=== PATIENT | male | born 1930 | race Caucasian/White ===

== ENCOUNTER → 2016-11-17 | Outpatient (CLI) | payer MEDICARE ==
[~2016-11-17] MED LIST: ASPIRIN PO; ATENOLOL25 MG PO; CLARITIN10 MG PO; COZAAR PO; DARVOCET-N 1001 TAB PO; FINASTERIDE5 M1 PO; LIPITOR PO; LISINOPRIL PO; METAMUCIL0.52 G PO; PRILOSEC PO; ZOCOR PO
[2016-11-17 12:12] LABS: CREATININE SERUM 0.9 mg/dL (0.6-1.4); GLOM FILT RATE Estimated 78.2 mL/min (>60)
== END | disposition home or self-care (01) ==
LOC: CLAB 10:54
PROVIDERS: Registered Nurse
DX: I71.4 Abdominal aortic aneurysm, without rupture (principal)
CPT/HCPCS: 36415; 82565; 84520

== ENCOUNTER → 2016-11-24 | Outpatient (CLI) | payer MEDICARE ==
--- NOTE | ~2016-11-24 | CT14 ---
[facility] A Service of [facility] & [facility] RADIOLOGY TEXT RESULTS PATIENT: NURYS SNOW LOCATION: [facility] : 32 UNIT #: [id number] AGE: [address]: Martha Naidu SEX: M ORDER DR: [id number] [facility] [address] [facility]. [place], [place] [address] [id number] MR#: [id number] Acc #: [id number] NAME: NURYS SNOW : 1930 SEX: M STUDY DATE/TIME: 11/24/2016 10:50 UNIT: [facility] ROOM: STUDY DESCRIPTION: CT Angio Abdomen and Pelvis Attending Physician: Martha Naidu A.P.R.N. Referring Physician: Martha Naidu A.P.R.N. Ordering Physician: Staff Doctor Not On Primary Care Physician: Carrington Dumont M.D. MEDICAL IMAGING REPORT This report is preliminary unless electronic signature is present EXAM CT abdomen and pelvis about contrast, CT angiography abdomen and pelvis with contrast DATE 11/24/2016 HISTORY 86-year-old male history of endograft repair of intra-abdominal aneurysm. Followup. COMPARISON CTA of the abdomen and pelvis 05/24/2016. PROCEDURE Normal noncontrast axial images through the abdomen and pelvis. Postcontrast imaging arterial phase and in the 90-second phases were obtained through the abdomen and pelvis. This CT exam was performed with one or more of the following radiation dose reduction techniques: automatic exposure control, adjustment of mA and/or kV according to patient size, and iterative reconstruction. 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 There is no evidence of appreciable endostent thrombus. The endostent appears unchanged in position and appears patent. The endosac has diminished in size, currently measuring 4.1 x 4.2 cm compared to 5.5 x 5.6 cm previously. There is no evidence of Endoleak. There is moderate calcific atherosclerosis in the distal non-stented segments of the common iliac arteries, [id number] calcific atherosclerosis in the continuing external iliac and common femoral arteries, without high-grade stenosis seen. There is occlusion of the STS. [facility] A Service of [facility] & [facility] RADIOLOGY TEXT RESULTS PATIENT: NURYS SNOW LOCATION: [facility] : 32 UNIT #: [id number] AGE: [address]: Martha Naidu SEX: M ORDER DR: right internal iliac artery distally, and there is moderately advanced atherosclerotic disease in the left internal iliac artery. The TOMASZ is chronically occluded. SMA and celiac arteries and bilateral renal arteries are patent with only mild atherosclerotic disease and no flow-limiting stenosis seen. ADDITIONAL ABDOMEN FINDINGS: Emphysematous changes are present within the lung bases. Extensive calcified granulomatous changes are present in the liver and spleen. Stable mild cardiac enlargement. Dense coronary artery calcifications are present. The pancreas and kidneys are within normal limits, and there may be a tiny right renal cortical cyst. There is mild nodular thickening f the bilateral adrenal glands, unchanged, likely representing benign adenomas. Diverticular changes are seen within the colon without evidence of acute diverticulitis. ADDITIONAL PELVIS FINDINGS: Sigmoid diverticular changes are present without acute diverticulitis. Urinary bladder, prostate, and rectum are within normal limits. Grade 1 anterolisthesis L4 upon L5, likely due to chronic facet arthropathy, unchanged. IMPRESSION 1. Stable appearance of the aortobi-iliac endograft. The endograft lumen appears patent. Continuing uyle-uo-ybaqiwyp atherosclerotic disease changes in the continuing common iliac, external iliac, and common femoral arteries, similar to prior examination. 2. 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 3. 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 4. Endosac size has diminished since 05/24/2016. No evidence of endoleak. 5. Please refer to the body of the report for additional incidental CT findings. Dictated by... Kenna Davis M.D. THIS IS AN ELECTRONICALLY VERIFIED REPORT Kenna Davis M.D. at 11/25/2016 5:06 PM ALEXANDRA/serena TD: 11/25/2016 10:08 JOB #: [id number] MEDICAL IMAGING REPORT Page 1 of 1 COPY
== END | disposition home or self-care (01) ==
LOC: CCAT 10:24
DX: I71.4 Abdominal aortic aneurysm, without rupture (principal); I74.5 Embolism and thrombosis of iliac artery; K55.069 Acute infarction of intestine, part and extent unspecified; Z95.828 Presence of other vascular implants and grafts
CPT/HCPCS: 74174; Q9967

== ENCOUNTER 2017-03-14 16:44 | Inpatient (IN) | payer MEDICARE ==
[~2017-03-14] VITALS: Ht 175.3 cm; Wt 80.5 kg
--- NOTE | ~2017-03-14 | HP ---
Unit #: [id number] #: [id number] Patient: NURYS SNOW [id number] [address] [place], [place] [address] [id number] I MR#: [id number] NAME: NURYS SNOW ROOM: [address]74 Age: 87 Sex: M Admission Date: 03/14/2017 : 1930 Attending Physician: Edenilson Mattson M.D. Primary Care Physician: Carrington Dumont M.D. HISTORY AND PHYSICAL CHIEF COMPLAINT Shortness of breath and chest pain. HISTORY OF PRESENT ILLNESS The patient is an 87-year-old male with a history of coronary artery disease with 60% left main stenosis, 75% mid LAD stenosis, 70% posterior left ventricular branch of RCA stenosis, unstable angina pectoris, moderate mitral regurgitation, hypertensive heart disease, and abdominal aortic aneurysm, status post repair with stent, who presented to the emergency room complaining of chest pain. The patient was found to be hypoxic at the time of arrival with 76-78% on room air. The patient stated that the patient has been having chest pain associated with shortness of breath since the weekend. The patient also started complaining of coughing up blood foamy color with bubbles since yesterday. The patient was found to have a lactic acid of 6.5, BNP of more than 4988, and troponin of 9.14. The patient is being admitted for the above reasons. The chest x-ray shows patient had cardiomegaly and imaging features most characteristic of mild volume overload with probable superimposed pneumonia in the mid and lower lung zones on the right. The patient denies any fever. The patient continues to have epigastric pain and feeling uncomfortable on four liters of nasal cannula. Patient's commercial green building designer, Dr. Owens, has been paged. PAST MEDICAL HISTORY 1. Coronary artery disease. 2. Hypertension. 3. Mitral regurgitation. 4. Hypertensive heart disease. 5. Abdominal aortic aneurysm, status post stent. PAST SURGICAL HISTORY 1. Cardiac catheterization with 60% distal left main stenosis, 75% mid LAD stenosis, and 70% posterior left ventricular branch of the RCA stenosis. 2. Bilateral cataract replacement. HOME MEDICATIONS 1. Plavix. 2. Zocor. 3. Prilosec. 4. Aspirin. 5. Finasteride. 6. Cozaar. Unit #: [id number] #: [id number] Patient: NURYS SNOW 7. Atenolol. ALLERGIES No known drug allergies. SOCIAL HISTORY No history of smoking cigarettes, drinking alcohol, or any illicit drug abuse. Code status is Full Code for now. Patient's daughters are the POA and will talk to the patient about the code status and will let us know about the code status with the guarded prognosis. FAMILY HISTORY Reviewed and none. REVIEW OF SYSTEMS Positive for chest pain, positive for shortness of breath, positive for hemoptysis, positive for epigastric abdominal pain, and positive for leg edema. Denies any headache. Other systems reviewed and the remaining systems are negative. PHYSICAL EXAMINATION GENERAL: Patient is lying in bed not in acute distress. VITAL SIGNS: Temperature is afebrile, pulse 76, respiratory rate 20, blood pressure 124/85, and saturating 78% on room air. HEENT: Head atraumatic, normocephalic. Pupils equal, round, and reactive to light and accommodation. NECK: Supple. Positive JVP. LUNGS: Decreased air entry at the bases. Positive (1) and rhonchi. HEART: Regular rate and rhythm. Positive for murmur. ABDOMEN: Soft. Positive bowel sounds. EXTREMITIES: Positive for trace edema. NEUROLOGIC: Alert, awake, and oriented. No gross focal motor deficit. DIAGNOSTIC STUDIES LABORATORY: ABG on 4 liters showed pH of 7.33, PCO2 of 30, PO2 of 65, bicarb 16.2, and saturating 90.4. WBC 12.8, hemoglobin 10.5, hematocrit 31.7, and platelets 262,000. Troponin is 9.14. BNP is more than 4988. INR is 1.1 and PTT is 32. D-dimer 647. Lactic acid 6.5. Sodium 117, potassium 4.6, chloride 83, bicarb 18, glucose 162, BUN 35, creatinine 1.5, AST 87, ALT 34, alkaline phosphatase 101, total bilirubin 0.8, albumin is 4, and magnesium is 2. IMAGING: Chest x-ray shows cardiomegaly and imaging features most characteristic of mild volume overload with probable superimposed pneumonia in the mid and lower lung zones on the right. This could represent more confluent edema or associated atelectasis. CARDIOLOGY: EKG shows sinus rhythm with a first degree AV block and left axis deviation with T wave inversions in the inferior leads with lead II, lead III, and V2. ASSESSMENT 1. Non-ST elevation myocardial infarction. 2. Sepsis. 3. Hyponatremia. 4. Pneumonia. PLAN Unit #: [id number] #: [id number] Patient: NURYS SNOW Admit the patient as inpatient to ICU with telemetry. Continue with diuresis. Continue with sepsis protocol and IV antibiotics. Will have antibiotics with Maxipime and Zithromax. Will have multiple consultants with Cardiology, Critical Care, and Renal consults. Code status is pending as the POA, his daughters, are going to speak to the patient and will decide about the code status. Patient's prognosis is poor/guarded. Further recommendations will follow. Dictated by Maryam Gloria TD: 03/14/2017 20:48 JOB #: [id number] HISTORY AND PHYSICAL Page 1 of 1 X EDENILSON MATTSON MD X HISTORY AND PHYSICAL
--- NOTE | ~2017-03-14 | CR72 ---
[facility] A Service of [facility] & [facility] RADIOLOGY TEXT RESULTS PATIENT: NURYS SNOW LOCATION: [place] [address]-14 : 32 UNIT #: [id number] AGE: [address]: Gen Escobedo MD SEX: M ORDER DR: [id number] [facility] [address] [facility]. [place], [place] [address] [id number] I MR#: [id number] Acc #: [id number] NAME: NURYS SNOW : 1930 SEX: M STUDY DATE/TIME: 03/15/2017 6:16 UNIT: [facility] ROOM: [facility] STUDY DESCRIPTION: CR Chest Single View Portable Attending Physician: Gen Escobedo M.D. Ordering Physician: Aura Willis M.D. Primary Care Physician: Carrington Dumont M.D. MEDICAL IMAGING REPORT This report is preliminary unless electronic signature is present EXAM Portable chest HISTORY Follow-up congestive heart failure, shortness of air. COMPARISON 03/14 FINDINGS Today's portable view of the chest again shows extensive right lung infiltrate. That is actually slightly worse. The left lung is clear. The heart is stable and moderately enlarged. Dictated by... Maged Moreno M.D. THIS IS AN ELECTRONICALLY VERIFIED REPORT Maged Moreno M.D. at 03/15/2017 1:29 PM MARTIN/hernesto TD: 03/15/2017 13:04 JOB #: [id number] MEDICAL IMAGING REPORT Page 1 of 1 COPY
--- NOTE | ~2017-03-14 | EKG ---
PATIENT: NURYS SNOW UNIT #: [id number] Ventricular Rate: 82 BPM Atrial Rate: 82 BPM P-R Interval: 296 ms QRS Duration: 118 ms Q-T Interval: 382 ms QTC Calculation(Bezet): 446 ms P Sidney: 41 degrees Calculated R Sidney: -41 degrees Calculated T Sidney: 107 degrees Diagnosis Line: Sinus rhythm with 1st degree A-V block Diagnosis Line: Left axis deviation Diagnosis Line: Left ventricular hypertrophy with QRS widening and Diagnosis Line: repolarization abnormality Diagnosis Line: Abnormal ECG Diagnosis Line: When compared with ECG of 24-MAR-2016 08:19, Diagnosis Line: QRS duration has increased Diagnosis Line: ST now depressed in Lateral leads Diagnosis Line: T wave inversion no longer evident in Inferior Diagnosis Line: leads Diagnosis Line: T wave inversion now evident in Lateral leads Diagnosis Line: Confirmed by CHRISTINE NICOLAS MD ([id number]) on 03/15/2017 Diagnosis Line: 11:46:55 PM INTERPRETING MD: FIDENCIO COLE
--- NOTE | ~2017-03-14 | CO ---
Unit #: [id number] #: [id number] Patient: NURYS SNOW [id number] [address] [place], [place] [address] [id number] MR#: [id number] NAME: NURYS SNOW ROOM: [facility] Age: 87 Sex: M Admission Date: 03/14/2017 : 1930 Attending Physician: Gen Escobedo M.D. Primary Care Physician: Carrington Dumont M.D. Consultation Date: 03/14/2017 CONSULTATION REPORT REASON FOR CONSULTATION SARAH with hyponatremia. HISTORY OF PRESENT ILLNESS The patient is an 87-year-old male with history of coronary artery disease, congestive heart failure, diastolic dysfunction, multivessel CAD, aortic aneurysm status post repair, presented to the emergency room with chest pain, shortness of air, hypoxic room air oxygen around 78%. The patient was found to have acute kidney injury baseline creatinine 0.9 and early 02/2017, now creatinine 1.5 with sodium of 117, lactic acid was elevated to 6.5 and BNP more than 4988. Troponin was elevated to 4.19. Cardiology has been consulted. I have been asked to see the patient for hyponatremia. Also the patient has an acute kidney injury. The patient was on antigen receptor almas, losartan and hydrochlorothiazide. No nausea, no vomiting, no diarrhea. No NSAIDs. No recent IV contrast. The patient denies any fever. No chills, no cough, no congestion. The patient has been admitted to hospital for further management. PAST MEDICAL HISTORY History of hypertension, coronary artery disease, congestive heart failure, mitral regurgitation, diastolic dysfunction, abdominal aortic aneurysm repair. PAST SURGICAL HISTORY Cardiac cath, history of cataract surgery. SOCIAL HISTORY No smoking. No alcohol abuse. No history of drug abuse. FAMILY HISTORY No history of hemodialysis. ALLERGIES No known drug allergies. MEDICATIONS Routine home medications; Cozaar/hydrochlorothiazide, finasteride, aspirin, Prilosec, Zocor, Plavix, and atenolol. REVIEW OF SYSTEMS A 12-point system reviewed, pertinent positive as per history of presenting illness. DIAGNOSTIC STUDIES Unit #: [id number] #: [id number] Patient: NURYS SNOW LABORATORY RESULTS: Sodium 117, potassium 4.6, chloride 83, bicarb 18, anion gap is 16, glucose 162, BUN 35, creatinine 1.5. AST 87, ALT 34, alkaline phosphatase 101, bilirubin 0.8, albumin 4, magnesium 2. BNP 4988. WBC is 12.8, hemoglobin 10.5, platelets 262. Blood gas; pH is 7.33, pCO2 30, pO2 65. IMAGING STUDIES: Chest x-ray shows cardiomegaly with congestion. PHYSICAL EXAMINATION VITAL SIGNS: Temperature 97.5, pulse 84, respiratory rate 33, blood pressure 125/68. HEENT: Head, normocephalic. Eyes; anicteric, pupils equally reactive to light. Ears; no exudate. Nose; no congestion. Throat; no discharge. NECK: Supple. JVD positive. No carotid bruits. No cervical lymphadenopathy. No thyromegaly. LUNGS: Mild basal crackles. No wheezes. No rhonchi. HEART: S1 and S2 audible. No murmur. No gallops. ABDOMEN: Soft, nondistended, nontender. No organomegaly. EXTREMITIES: No edema. ASSESSMENT 1. Acute kidney injury most likely secondary to hemodynamic changes with possible use of angiotensin receptor blockers with evidence of acute myocardial infarction and may have acute tubular necrosis. 2. Hypotension most likely secondary to cardiogenic shock. 3. Hyponatremia most likely secondary to congestive heart failure with high ADH state. 4. Congestive heart failure with evidence of increased volume. We will follow up echocardiogram to evaluate systolic versus diastolic dysfunction. 5. History of coronary artery disease. 6. Xth-ZL-stevttw elevation myocardial infarction with elevated troponin, the patient is on heparin drip, Cardiology following, questionable pneumonia. The patient is on antibiotics. 7. Abnormal LFTs most likely secondary to hepatic congestion. RECOMMENDATION AND PLAN The patient has received Bumex 2 mg IV push now. We will give Bumex 2 mg IV push at 3 a.m. We will monitor I's and O's, daily weight. Place Roy catheter. Check serum sodium every 6 hours if more than 124, we will avoid rapid correction, may give D5W. We will check serum uric acid, serum cortisol, urine electrolytes, urine osmolality. We will follow up this patient closely. Thanks for consultation. Dictated by... Maryam Velasquez TD: 03/15/2017 23:13 JOB #: [id number] Unit #: [id number] #: [id number] Patient: NURYS SNOW CONSULTATION REPORT Page 1 of 1 X Tavon Willis MD CONSULTATION REPORT
--- NOTE | ~2017-03-14 | CO ---
Unit #: [id number] #: [id number] Patient: NURYS SNOW [id number] [address] [place], [place] [address] [id number] MR#: [id number] NAME: NURYS SNOW ROOM: [facility] Age: 87 Sex: M Admission Date: 03/14/2017 : 1930 Attending Physician: Gen Escobedo M.D. Primary Care Physician: Carrington Dumont M.D. Consultation Date: 03/14/2017 CONSULTATION REPORT This 87-year-old male had shortness of breath for four days. He also had discomfort in the left upper quadrant of the abdomen just immediately inferior to the margin of the rib cage. PRESENT ILLNESS He has been short of air and weak since Tuesday. He is barely able to walk. He did not take any of his drugs today, except for his finasteride. He has been coughing and had a cough with some hemoptysis. He has not have feverishness or chills. No leg swelling but he has had a weight gain perhaps as much as 10 pounds over the last four days. No palpitation or syncope. No orthopnea or nocturnal dyspnea. No chest discomfort or heaviness. PAST HISTORY 1. Left main coronary disease. Catheterization 03/14/2016: a. 50% ejection fraction. b. Moderate mitral regurgitation. c. Left main 60% stenosis. d. LAD had sequential 70%, 75%, and 50% narrowing after the first septal electronics research engineer. e. Ramus intermedius normal. f. Circumflex normal. g. Dominant right coronary had 70% stenosis at the origin of the posterior left ventricular branch. 2. There is a past history of abdominal aortic aneurysm. I am not sure if this was treated. 3. Prostate hypertrophy. 4. High blood pressure. 5. Reflux. SOCIAL HISTORY Lives alone. Does his own grocery shopping. He has a flight of stairs to the basement but he has to rest climbing the stairs. He is a full resuscitation at this time. ALLERGIES None. FAMILY HISTORY Noncontributory for this admit. REVIEW OF SYSTEMS Unit #: [id number] #: [id number] Patient: NURYS SNOW GENERAL: Height 71 inches. Weight 175 pounds with recent weight gain. No fever or chills. ENDOCRINE: No diabetes or thyroid disease. HEENT: No headache. GASTROINTESTINAL: No melena or hematochezia. No alcohol use. RESPIRATORY: No cigarette smoking or obstructive lung disease. CARDIAC: He has high blood pressure. GENITOURINARY: Prostate hypertrophy, no dysuria. NEUROLOGICAL: No transient extremity weakness or stroke. All other systems negative. PHYSICAL EXAMINATION GENERAL: Slight uncomfortable, obese, elderly white male with mild respiratory distress. VITAL SIGNS: Respiration 20, heart rate 76 and regular, blood pressure 135/85. Temperature 35.7 centigrade. SKIN: No purpura, rash, ulcer. HEENT: Eyes - pupils reactive. No xanthelasma. Oral - mild pallor, no dryness. Dentition is fair. NECK: External jugular veins are filled. Estimated central vein pressure exceeds 6 cm, difficult to establish reliably. Carotid impulse normal. No bruit. No thyroid enlargement. SPINE: No scoliosis. CHEST: Poor air movement. Very trace wheezes with expiration anteriorly. No crackles. No rhonchi. CARDIAC: Cardiac is distant. Very distant first and second heart sounds. No murmur. No gallop. ABDOMEN: There may be some mild tenderness in the left upper quadrant, difficult to say but pretty much the abdomen is soft. Bowel sounds are present. No important tenderness. No organ enlargement, aortic enlargement, bruit or mass. RECTAL: Not done. EXTREMITIES: No edema, cyanosis, or clubbing. PERIPHERAL VASCULAR EXAM: Full pedal and femoral impulses slow bilateral. NEUROLOGICAL: Alert and oriented x3. No agitation. Motor function intact in all extremities. No tremor. No ataxia. DIAGNOSTIC STUDIES IMAGING STUDIES: Chest x-ray shows cardiac enlargement, mild volume excess, a question of superimposed pneumonia. LABORATORY STUDIES: BNP exceeds 5,000. Hemoglobin 10.5, white count 13,000, platelet normal. Blood gas on 4 L, pH 7.34, pCO2 30, pO2 65. Currently has 96% saturation. INR 1.1. Sodium 117, chloride 83, bicarb 18, BUN 35, creatinine 1.5, potassium 4.6, AST 87. Troponin is initially 7.1 and on repeat 9.1. CARDIOLOGY STUDIES: EKG - normal sinus rhythm, first degree AV block, left axis deviation, left ventricular hypertrophy, decreased anterior forces, cannot rule out septal infarct. ST segments are nonspecific. No significant differences in the first two EKGs. Unit #: [id number] #: [id number] Patient: NURYS SNOW IMPRESSION 1. Established left main coronary artery. 2. Acute non ST elevation myocardial infarction. It is conceivable that this has been going on for four days. 3. Acute congestive heart failure, most likely systolic heart failure in the setting of acute ischemia with left main. 4. Profound hyponatremia, partially the consequence of his hydrochlorothiazide. He has relative water excess at this time and actually probable normal sodium. 5. Satisfactory oxygenation. 6. Possible superimposed pneumonia but this looks mostly like an acute cardiac heart failure in the setting of acute myocardial infarction with left main coronary disease. PLAN 1. Loop diuretic and avoidance of hypotonic fluid at this time; temporary fluid restriction. He has received Lovenox. The use of Lovenox may get to be complicated if his renal failure progresses acutely. Although he is prerenal he clearly has findings of volume excess and needle intensified diuretic, which I will order. 2. Even though he is in heart failure it would be a mistake to completely cut off his beta blockade. I will reduce atenolol from 100 to 50 mg daily and I will administer it as 25 mg twice daily. I will wait to observe that he can have a good diuretic response for some loop diuretic given urgently. Order to follow his serum sodium. 3. Since we known his coronary anatomy and have no regional changes on his EKG, I'm not sure that urgent catheterization is going to be productive for him. I will hope that we can get some improvement with intensified diuretic treatment to resolve his acute heart failure. Dictated by... Maryam Bob TD: 03/15/2017 11:13 JOB #: [id number] CONSULTATION REPORT Page 1 of 1 X Romulo Borrero MD X CONSULTATION REPORT
--- NOTE | ~2017-03-14 | CR72 ---
[facility] A Service of [facility] & [facility] RADIOLOGY TEXT RESULTS PATIENT: NURYS SNOW LOCATION: [address] : [birth year] UNIT #: [id number] AGE: [address]: Gen Escobedo MD SEX: M ORDER DR: [id number] [facility] [address] [facility]. [place], [place] [address] [id number] I MR#: [id number] Acc #: [id number] NAME: NURYS SNOW : 1930 SEX: M STUDY DATE/TIME: 03/16/2017 3:00 UNIT: [facility] ROOM: [facility] STUDY DESCRIPTION: CR Chest Single View Portable Attending Physician: Gen Escobedo M.D. Ordering Physician: Burt Owens M.D. Primary Care Physician: Carrington Dumont M.D. MEDICAL IMAGING REPORT This report is preliminary unless electronic signature is present EXAM Chest x-ray 03/16/2017 HISTORY 87-year-old male, hospital inpatient, admitted on 03/14/2017 with chest pain and shortness of air. Follow up inpatient cardiopulmonary status. TECHNIQUE AP portable chest x-ray. FINDINGS The exam shows no change since yesterday. Moderately severe cardiomegaly is stable. Diffusely increased interstitial markings throughout both lungs, likely representing pulmonary edema. More dense opacity in the right posterior lung base may represent pleural effusion and/or airspace consolidation. IMPRESSION Stable portable chest radiograph, unchanged since yesterday. Dictated by... John Altamirano M.D. THIS IS AN ELECTRONICALLY VERIFIED REPORT John Altamirano M.D. at 03/16/2017 10:03 PM CHAPO/karina TD: 03/16/2017 09:26 JOB #: [id number] MEDICAL IMAGING REPORT Page 1 of 1 COPY
--- NOTE | ~2017-03-14 | CO ---
Unit #: [id number] #: [id number] Patient: NURYS SNOW [id number] [address] [address] [id number] I MR#: [id number] NAME: NURYS SNOW ROOM: [facility] Age: 87 Sex: M Admission Date: 03/14/2017 : 1930 Attending Physician: Gen Escobedo M.D. Primary Care Physician: Carrington Dumont M.D. Consultation Date: 03/15/2017 CONSULTATION REPORT REASON FOR CONSULT ICU management. CHIEF COMPLAINT Shortness of breath and chest pain. HISTORY OF PRESENT ILLNESS This is a very pleasant 87-year-old male with well known history of significant coronary artery disease, possible emphysema and hypertension who presented to the emergency room with acute on chronic shortness of breath and chest discomfort. Per the daughters, the patient lives alone, and he is very independent; however, they live close by. The patient has been complaining of progressive fatigue for the last few weeks. He has also been short of breath, but he was managing okay until Tuesday when he started becoming more dyspneic, and he was having fever with significant chills. He was coughing up initially some streaks of blood, but now it has turned orange and yellowish. The patient feels nauseated, but he denied any vomiting or diarrhea. There was no exposure to sick contacts. The patient does not wear oxygen or take any inhalers at home. Upon presentation to the emergency room, his oxygen saturation was in the mid 70s on room air. His lactic acid was elevated at 6.5, and his BNP was more than 40,000. PAST MEDICAL HISTORY 1. Coronary artery disease. 2. Hypertension. 3. Mitral regurgitation. 4. Hypertension. 5. Abdominal aortic aneurysm. PAST SURGICAL HISTORY 1. Cardiac cath. 2. Bilateral cataract "replacement." 3. Aortic aneurysm stent placement. HOME MEDICATIONS 1. Plavix. 2. Zocor. 3. Prilosec. Unit #: [id number] #: [id number] Patient: NURYS SNOW 4. Aspirin. 5. Finasteride. 6. Cozaar. 7. Atenolol. ALLERGIES No known drug allergies. SOCIAL HISTORY The patient smoked heavily for a long time, but he quit 23 years ago. No history of alcohol or drug abuse. He lives alone, and he is independent, but his daughters live close by. CODE STATUS Full. FAMILY HISTORY Noncontributory. REVIEW OF SYSTEMS Twelve-point review of systems was obtained and was negative except for what was mentioned in the HPI. PHYSICAL EXAMINATION GENERAL: The patient currently is in no acute distress; however, he was in respiratory distress upon presentation to the emergency room yesterday. VITAL SIGNS: His blood pressure is 126/72, respiratory rate 16, O2 saturation 98% on Oxymizer. HEENT: Atraumatic, normocephalic. PERRLA, EOMI. NECK: Supple. No JVD. No lymphadenopathy. CHEST: Bilateral diffuse rhonchi and scattered wheezing. HEART: S1, S2 with systolic murmur. ABDOMEN: Soft, nontender. Bowel sounds positive. No hepatosplenomegaly. EXTREMITIES: No edema or cyanosis. SKIN: No rashes. PLASTER FOREMAN: Awake, alert, oriented x3. No focal motor/sensory deficits. DIAGNOSTIC STUDIES LABORATORY: Creatinine 1.6, sodium 118, CO2 18, lactic acid 6.5. White blood count is 12.8, hemoglobin 10.3. IMAGING: Chest x-ray is consistent with pulmonary edema plus/minus pneumonia. ASSESSMENT 1. Acute hypoxic respiratory failure. 2. Community-acquired pneumonia. 3. Non-ST elevation WI. 4. Severe sepsis/septic shock per lactic acid criteria. 5. Acute kidney injury. 6. Possible congestive heart failure, unknown type at this point. 7. Hypertension. 8. Questionable COPD/emphysema. PLAN 1. Patient currently is feeling better. He is on Oxymizer, which we will wean down as tolerated. 2. Bronchodilator, mucolytics and cefepime/azithromycin. Unit #: [id number] #: [id number] Patient: NURYS SNOW 3. Will follow blood culture and will add sputum culture. 4. Full dose Lovenox and Integrilin. 5. Cardiac eval. 6. Status post hydration per sepsis guidelines; however, due to his chest x-ray, elevated BNP and possible congestive heart failure, he is currently on Bumex. Will follow lactic acid and urine output very closely. 7. Prognosis is guarded overall given his age and significant coronary artery disease. Will reassess code status with the patient and if further workup. NOTE: Critical care time spent on this patient was 32 minutes; 50% of this time was spent face to face with the patient and his family. Dictated by... Maryam Carrasco TD: 03/15/2017 11:40 JOB #: [id number] CONSULTATION REPORT Page 1 of 1 X LIA DUPREE MD X CONSULTATION REPORT
--- NOTE | ~2017-03-14 | OR ---
Unit #: [id number] #: [id number] Patient: NURYS SNOW [id number] [address] [place], [place] [address] [id number] I MR#: [id number] NAME: NURYS SNOW ROOM: [facility] Date of Procedure: 03/16/2017 Admission Date: 03/14/2017 Surgeon: Lia Mattson M.D. : 1930 Attending Physician: Gen Escobedo M.D. Primary Care Physician: Carrington Dumont M.D. PROCEDURE OPERATIVE NOTE PREOPERATIVE DIAGNOSIS Cardiogenic shock. POSTOPERATIVE DIAGNOSES 1. Cardiogenic shock. 2. Pneumonia. PROCEDURE PERFORMED Right intrajugular venous catheter placement with ultrasound guidance. INDICATION FOR PROCEDURE Cardiogenic shock. COMPLICATIONS None. ANESTHESIA Lidocaine topical. PERFORMING PHYSICIAN Lia Mattson M.D. MATERIALS MANAGEMENT SUPERVISOR Karen Hassan. DESCRIPTION OF PROCEDURE An informed consent was obtained from the patient himself after explaining the benefit and risk of this procedure. The patient was prepped and positioned in a proper way, then with the ultrasound guidance a needle was inserted in the right IJ until blood flow was obtained. The patient was prepped before that with chlorhexidine and sterile body drape. A guidewire inserted through the needle, and the needle was removed. Then a catheter was inserted over the guidewire after dilating the skin. The guidewire was removed, and the catheter was sutured in place and then flushed appropriately. Biopatch and clean dressing were applied. Chest x-ray is pending at the time of dictation. Dictated by... Lia Mattson M.D. Unit #: [id number] #: [id number] Patient: NURYS SNOW NUNU/dashawn TD: 03/16/2017 10:55 JOB #: [id number] PROCEDURE OPERATIVE NOTE Page 1 of 1 X LIA DUPREE MD X PROCEDURE OPERATIVE NOTE
--- NOTE | ~2017-03-14 | CR72 ---
[facility] A Service of [facility] & [facility] RADIOLOGY TEXT RESULTS PATIENT: NURYS SNOW LOCATION: [address] : [birth year] UNIT #: [id number] AGE: [address]: Gen Escobedo MD SEX: M ORDER DR: [id number] [facility] [address] [facility]. [place], [place] [address] [id number] I MR#: [id number] Acc #: [id number] NAME: NURYS SNOW : 1930 SEX: M STUDY DATE/TIME: 03/16/2017 10:05 UNIT: [facility] ROOM: [facility] STUDY DESCRIPTION: CR Chest Single View Portable Attending Physician: Gen Escobedo M.D. Ordering Physician: Gen Escobedo M.D. Primary Care Physician: Carrington Dumont M.D. MEDICAL IMAGING REPORT This report is preliminary unless electronic signature is present EXAM Right intrajugular venous catheter placement, followup infiltrates. FINDINGS Portable view of the chest shows a new right intrajugular venous catheter with its tip in the superior vena cava. Extensive right lung infiltrate is stable. Left lung is clear. The heart is mildly enlarged. Dictated by... Maged Moreno M.D. THIS IS AN ELECTRONICALLY VERIFIED REPORT Maged Moreno M.D. at 03/16/2017 4:40 PM FEL/gz TD: 03/16/2017 14:56 JOB #: [id number] MEDICAL IMAGING REPORT Page 1 of 1 COPY
--- NOTE | ~2017-03-14 | EKG ---
PATIENT: NURYS SNOW UNIT #: [id number] Ventricular Rate: 76 BPM Atrial Rate: 78 BPM QRS Duration: 104 ms Q-T Interval: 414 ms QTC Calculation(Bezet): 465 ms Calculated R [place]: -42 degrees Calculated T [place]: 113 degrees Diagnosis Line: Atrial fibrillation with a competing junctional Diagnosis Line: pacemaker Diagnosis Line: Left axis deviation Diagnosis Line: ST and T wave abnormality, consider anterolateral Diagnosis Line: ischemia or digitalis effect Diagnosis Line: Prolonged QT Diagnosis Line: Abnormal ECG Diagnosis Line: Diagnosis Line: Confirmed by CHRISTINE NICOLAS MD ([id number]) on 03/16/2017 Diagnosis Line: 11:15:37 PM INTERPRETING MD: FIDENCIO COLE
--- NOTE | ~2017-03-14 | CR72 ---
[facility] A Service of [facility] & [facility] RADIOLOGY TEXT RESULTS PATIENT: NURYS SNOW LOCATION: [facility]3-14 : [birth year] UNIT #: [id number] AGE: [address]: EDENILSON MARTINS MD SEX: M ORDER DR: [id number] [facility] [address] [facility] [address]. [place], [place] [address] [id number] E MR#: [id number] Acc #: [id number] NAME: NURYS SNOW : 1930 SEX: M STUDY DATE/TIME: 03/14/2017 17:34 UNIT: [facility] ROOM: STUDY DESCRIPTION: CR Chest Single View Portable Attending Physician: Janeth Mendieta M.D. Ordering Physician: Janeth Mendieta M.D. Primary Care Physician: Carrington Dumont M.D. MEDICAL IMAGING REPORT This report is preliminary unless electronic signature is present EXAM Frontal chest, 03/14/2017. INDICATION Cough and chest pain in an 87-year-old male that began 2 days ago. Short of air and body aches. Hypertension. TECHNIQUE Frontal chest compared with 04/06/2016. FINDINGS The heart is enlarged. There is vascular congestion and mild interstitial edema. More confluent edema or more likely edema and superimposed pneumonia in the mid and lower lung zones on the right. Trace effusions suspected bilaterally. No pneumothorax. There is old healed granulomatous disease. IMPRESSION Cardiomegaly and imaging features most characteristic of mild volume overload with probable superimposed pneumonia in the mid and lower lung zones on the right. This could also represent more confluent edema or associated atelectasis. Follow up to clearing recommended. STAT * RESULT Dictated by... Eliecer Shaw M.D. THIS IS AN ELECTRONICALLY VERIFIED REPORT Eliecer Shaw M.D. at 03/14/2017 11:19 PM KYLEEY/moiw [facility] A Service of [facility] & [facility] RADIOLOGY TEXT RESULTS PATIENT: NURYS SNOW LOCATION: [facility] CIC[facility]3-14 : [birth year] UNIT #: [id number] AGE: [address]: EDENILSON MARTINS MD SEX: M ORDER DR: TD: 03/14/2017 18:08 JOB #: [id number] MEDICAL IMAGING REPORT Page 1 of 1 COPY
--- NOTE | ~2017-03-14 | EKG ---
PATIENT: NURYS SNOW UNIT #: [id number] Ventricular Rate: 73 BPM Atrial Rate: 73 BPM P-R Interval: 280 ms QRS Duration: 108 ms Q-T Interval: 424 ms QTC Calculation(Bezet): 467 ms P [place]: 70 degrees Calculated R [place]: -45 degrees Calculated T [place]: 130 degrees Diagnosis Line: Sinus rhythm with 1st degree A-V block Diagnosis Line: Left anterior fascicular block Diagnosis Line: ST and T wave abnormality, consider anterolateral Diagnosis Line: ischemia Diagnosis Line: Prolonged QT Diagnosis Line: Abnormal ECG Diagnosis Line: When compared with ECG of 14-MAR-2017 17:54, Diagnosis Line: (unconfirmed) Diagnosis Line: No significant change was found Diagnosis Line: Confirmed by CHRISTINE NICOLAS MD ([id number]) on 03/15/2017 Diagnosis Line: 11:59:03 PM INTERPRETING MD: FIDENCIO COLE
--- NOTE | ~2017-03-14 | EKG ---
PATIENT: NURYS SNOW UNIT #: [id number] Ventricular Rate: 72 BPM Atrial Rate: 72 BPM P-R Interval: 298 ms QRS Duration: 110 ms Q-T Interval: 418 ms QTC Calculation(Bezet): 457 ms P [place]: 78 degrees Calculated R [place]: -47 degrees Calculated T [place]: 121 degrees Diagnosis Line: Sinus rhythm with marked sinus arrhythmia with 1st Diagnosis Line: degree A-V block Diagnosis Line: Left anterior fascicular block Diagnosis Line: Marked ST abnormality, possible lateral Diagnosis Line: subendocardial injury Diagnosis Line: T wave abnormality, consider anterior ischemia Diagnosis Line: Abnormal ECG Diagnosis Line: When compared with ECG of 14-MAR-2017 16:48, Diagnosis Line: (unconfirmed) Diagnosis Line: No significant change was found Diagnosis Line: Confirmed by CHRISTINE NICOLAS MD ([id number]) on 03/15/2017 Diagnosis Line: 11:48:12 PM INTERPRETING MD: FIDENCIO COLE
[2017-03-14 17:28] LABS: ARTERIAL BLD GAS O2 SATURATION 90.4 % (90.0-100.0); ARTERIAL BLOOD GAS CARBOXY HB 0.9 %sat (0.0-9.0); ARTERIAL BLOOD GAS HCO3 16.2 mmol/L; ARTERIAL BLOOD GAS PCO2 30.1 mmHg (35.0-45.0); ARTERIAL BLOOD GAS pH 7.339 (7.350-7.450)
[2017-03-14 17:30] LABS: ARTERIAL BLOOD GAS ALLEN TEST NORMAL; ARTERIAL BLOOD GAS ART SITE RIGHT BRACHIAL; ARTERIAL BLOOD GAS DELIVERY NASAL CANNULA; ARTERIAL BLOOD GAS PO2 65.2 mmHg (80.0-100); ARTERIAL DRAW? YES
[2017-03-14 17:37] LABS: BASOPHIL% 0.1 % (0-2.5); HEMATOCRIT 31.7 % (38.0-50.0); HEMOGLOBIN 10.5 gm/dL (13.0-16.0); LYMPHOCYTE# 0.6 X10e3 (1.0-3.5); LYMPHOCYTE% 4.9 % (17.0-45.0); MEAN CELL VOLUME 86.2 FL (83-96); MEAN CORPUSCULAR HEMOGLOBIN 28.7 PG (28-34); MEAN CORPUSCULAR HGB CONC 33.3 g/dL (30-36); MEAN PLATELET VOLUME 8.7 FL (6.5-11.5); MONOCYTE# 1.2 X10e3 (0-1.0); MONOCYTE% 9.5 % (3.0-12.0); NEUTROPHIL% 85.5 % (40-75); PLATELET COUNT 262 X10e3 (140-420); RED BLOOD COUNT 3.68 X10e (3.90-5.60); RED CELL DISTRIBUTION WIDTH 14.1 % (11.0-15.5); WHITE BLOOD COUNT 12.8 X10e3 (4.0-10.5)
[2017-03-14 17:39] LABS: DIFF IND NO
[2017-03-14 17:50] LABS: POC - CKMB 34.7 ng/mL (0.0-7.9); POC - TROPONIN 9.14 ng/mL (<=0.05)
[2017-03-14 17:51] LABS: INR 1.1; PROTHROMBIN TIME (PATIENT) 11.7 SECONDS (10.0-11.7)
[2017-03-14 18:06] LABS: BILIRUBIN, DIRECT 0.1 mg/dL (0.0-0.2); BILIRUBIN,INDIRECT 0.7 mg/dL (0.0-0.9); BILIRUBIN,TOTAL 0.8 mg/dL (0.2-2.0); BUN/CREATININE RATIO 23.33; CREATININE SERUM 1.5 mg/dL (0.6-1.4); GLOM FILT RATE Estimated 41.9 mL/min (>60); POTASSIUM 4.6 mmol/L (3.5-5.1); PROTEIN TOTAL SERUM 7.6 g/dL (6.0-8.3)
[2017-03-14 19:23] LABS: POC - CKMB 33.6 ng/mL (0.0-7.9); POC - TROPONIN 7.51 ng/mL (<=0.05)
[2017-03-14 23:04] LABS: URIC ACID 6.3 mg/dL (2.6-7.2)
[2017-03-14 23:30] LABS: URINE SOURCE CATH
[2017-03-14 23:41] LABS: URINE APPEARANCE CLEAR; URINE BILIRUBIN NEG (NEG); URINE BLOOD NEG (NEG); URINE COLOR YELLOW; URINE GLUCOSE NEG (NEG); URINE KETONE NEG (NEG); URINE LEUKOCYTE ESTERASE NEG (NEG); URINE NITRATE NEG (NEG); URINE PROTEIN TRACE (NEG); URINE SPECIFIC GRAVITY 1.016 (1.003-1.035); URINE UROBILINOGEN 0.2 MG/DL (NEG)
[2017-03-15 00:08] LABS: POTASSIUM,URINE RANDOM 52 mmol/L; SODIUM URINE RANDOM 17 mmol/L
[2017-03-15 02:01] LABS: %MB 9.5 % (0.0-4.0); MB 53.7 ng/ml
[2017-03-15 04:23] LABS: BASOPHIL% 0.1 % (0-2.5); HEMATOCRIT 30.7 % (38.0-50.0); HEMOGLOBIN 10.3 gm/dL (13.0-16.0); LYMPHOCYTE% 7.3 % (17.0-45.0); MEAN CELL VOLUME 86.9 FL (83-96); MEAN CORPUSCULAR HEMOGLOBIN 29.2 PG (28-34); MEAN CORPUSCULAR HGB CONC 33.7 g/dL (30-36); MEAN PLATELET VOLUME 8.8 FL (6.5-11.5); MONOCYTE# 2.4 X10e3 (0-1.0); MONOCYTE% 16.6 % (3.0-12.0); NEUTROPHIL# 10.8 X10e3 (1.5-7.1); PLATELET COUNT 226 X10e3 (140-420); RED BLOOD COUNT 3.53 X10e (3.90-5.60); WHITE BLOOD COUNT 14.2 X10e3 (4.0-10.5)
[2017-03-15 04:26] LABS: DIFF IND NO
[2017-03-15 04:40] LABS: INR 1.1; PROTHROMBIN TIME (PATIENT) 11.9 SECONDS (10.0-11.7)
[2017-03-15 04:46] LABS: PARTIAL THROMBOPLASTIN TIME 73.1 SECONDS (23.5-31.3)
[2017-03-15 04:52] LABS: CALCIUM SERUM 8.2 mg/dL (8.4-10.2); CREATININE SERUM 1.6 mg/dL (0.6-1.4); GLOM FILT RATE Estimated 38.7 mL/min (>60); POTASSIUM 4.9 mmol/L (3.5-5.1)
[2017-03-15 09:39] LABS: %MB 9.8 % (0.0-4.0); MB 67.1 ng/ml
[2017-03-15 17:03] LABS: BUN/CREATININE RATIO 27.36; CALCIUM SERUM 8.5 mg/dL (8.4-10.2); CREATININE SERUM 1.9 mg/dL (0.6-1.4); GLOM FILT RATE Estimated 31.4 mL/min (>60)
[2017-03-16 04:13] LABS: BASOPHIL% 0.1 % (0-2.5); HEMATOCRIT 26.5 % (38.0-50.0); HEMOGLOBIN 8.9 gm/dL (13.0-16.0); LYMPHOCYTE# 0.6 X10e3 (1.0-3.5); LYMPHOCYTE% 4.3 % (17.0-45.0); MEAN CELL VOLUME 85.5 FL (83-96); MEAN CORPUSCULAR HEMOGLOBIN 28.8 PG (28-34); MEAN CORPUSCULAR HGB CONC 33.7 g/dL (30-36); MEAN PLATELET VOLUME 8.8 FL (6.5-11.5); MONOCYTE# 2.1 X10e3 (0-1.0); NEUTROPHIL# 11.4 X10e3 (1.5-7.1); NEUTROPHIL% 80.6 % (40-75); PLATELET COUNT 196 X10e3 (140-420); RED CELL DISTRIBUTION WIDTH 14.5 % (11.0-15.5); WHITE BLOOD COUNT 14.1 X10e3 (4.0-10.5)
[2017-03-16 04:14] LABS: DIFF IND NO
[2017-03-16 04:45] LABS: BUN/CREATININE RATIO 25.45; CREATININE SERUM 2.2 mg/dL (0.6-1.4); GLOM FILT RATE Estimated 26.3 mL/min (>60); POTASSIUM 4.4 mmol/L (3.5-5.1)
[2017-03-16 08:30] LABS: ARTERIAL BLD GAS O2 SATURATION 96.2 % (90.0-100.0); ARTERIAL BLOOD GAS CARBOXY HB 0.8 %sat (0.0-9.0); ARTERIAL BLOOD GAS HCO3 21.5 mmol/L; ARTERIAL BLOOD GAS MET HB 0.8 %sat (0.0-2.0); ARTERIAL BLOOD GAS PCO2 35.2 mmHg (35.0-45.0); ARTERIAL BLOOD GAS pH 7.395 (7.350-7.450)
[2017-03-16 08:32] LABS: ARTERIAL BLOOD GAS ALLEN TEST N; ARTERIAL BLOOD GAS ART SITE RIGHT RADIAL; ARTERIAL BLOOD GAS DELIVERY OXYMIZER; ARTERIAL DRAW? YES
[2017-03-17 06:33] LABS: BILIRUBIN,TOTAL 0.5 mg/dL (0.2-2.0); BUN/CREATININE RATIO 25.38; CALCIUM SERUM 8.1 mg/dL (8.4-10.2); CREATININE SERUM 2.6 mg/dL (0.6-1.4); GLOM FILT RATE Estimated 21.5 mL/min (>60); PROTEIN TOTAL SERUM 6.2 g/dL (6.0-8.3)
[2017-03-17 08:13] LABS: MAGNESIUM 2.2 mg/dL (1.6-3.0); PHOSPHOROUS 4.8 mg/dL (2.5-4.6)
[2017-03-17 13:53] LABS: CHOLESTEROL 106 mg/dL (0-200); HDL CHOLESTEROL 34 mg/dL (29-75); LDL CHOLESTEROL 50 mg/dL (-130); LDL/HDL RATIO 1 RATIO (0-4); TRIGLYCERIDES 110 mg/dL (10-160)
== END 2017-03-17 18:47 | disposition expired | DRG 871 ==
LOC: CED 16:44 → CEDOF 19:00 → CED 19:40 → CEDOF 21:37 → CICCU3 21:37 → C5B 03-17 14:00
PROVIDERS: Internal Medicine; Internal Medicine Cardiovascular Disease; Internal Medicine Nephrology; Student in an Organized Health Care Education/Training Program
PROC: B246YZZ Ultrasonography of Right and Left Heart using Other Contrast (ICD-10-PCS; principal; 2017-03-14)
DX: A41.9 Sepsis, unspecified organism (principal); I21.4 Non-ST elevation (NSTEMI) myocardial infarction; J96.01 Acute respiratory failure with hypoxia; N17.0 Acute kidney failure with tubular necrosis; R65.21 Severe sepsis with septic shock; J69.0 Pneumonitis due to inhalation of food and vomit; I50.21 Acute systolic (congestive) heart failure; E87.1 Hypo-osmolality and hyponatremia; E87.2 Acidosis; R57.0 Cardiogenic shock; I11.0 Hypertensive heart disease with heart failure; I34.0 Nonrheumatic mitral (valve) insufficiency; K21.9 Gastro-esophageal reflux disease without esophagitis; Z87.891 Personal history of nicotine dependence; I25.10 Atherosclerotic heart disease of native coronary artery without angina pectoris; Z98.42 Cataract extraction status, left eye; Z98.41 Cataract extraction status, right eye; Z79.82 Long term (current) use of aspirin; D64.9 Anemia, unspecified; Z51.5 Encounter for palliative care
CPT/HCPCS: 36415; 36600; 71010; 80048; 80053; 80061; 80076; 81003; 82310; 82436; 82533; 82550; 82553; 82570; 82803; 83605; 83735; 83880; 83935; 84100; 84133; 84295; 84300; 84484; 84550; 85025; 85379; 85610; 85730; 87040; 87070; 87205; 93005; 93306; 94640; 94760; 96365; 96375; 99291; J0456; J0692; J1250; J1327; J1644; J1650; J2270; J2405; J2543; J3260; J3370